=== PATIENT | female | born 2000 | race Caucasian/White ===

== ENCOUNTER 2021-05-12 10:19 | Emergency (ER) | payer MEDICAID ==
[2021-05-12] MEDS ORDERED: PREDNISONE10 MG PO (10:51)
[2021-05-12] MEDS ORDERED: SERTRALINE HYD100 MG PO (10:52)
[2021-05-12 11:14] LABS: HEMATOCRIT 41.9 % (37.0-47.0); HEMOGLOBIN 14.4 g/dL (12.5-16.0); MEAN CELL VOLUME 83 fl (78-100); MEAN CORPUSCULAR HEMOGLOBIN 29 pg (27-31); MEAN CORPUSCULAR HGB CONC 34 g/dL (33-37); MEAN PLATELET VOLUME 11.2 fl (7.4-10.4); PLATELET COUNT 311 K/mm3 (130-400); RED BLOOD COUNT 5.06 M/mm3 (4.10-5.30); RED CELL DISTRIBUTION WIDTH 14.1 % (11.5-14.5); WHITE BLOOD COUNT 16.3 K/mm3 (4.8-10.8)
[2021-05-12 11:21] LABS: ALBUMIN 4.1 g/dL (3.5-5.0); POTASSIUM 3.4 mmol/L (3.5-5.1)
[2021-05-12 11:22] LABS: CALCIUM 8.6 mg/dL (8.3-10.5)
[2021-05-12 11:25] LABS: TOTAL BILIRUBIN 0.3 mg/dL (0.2-1.2); URINE APPEARANCE CLOUDY; URINE BILIRUBIN NEGATIVE (NEGATIVE); URINE BLOOD 250 ery/uL (NEGATIVE); URINE COLOR YELLOW; URINE GLUCOSE NEGATIVE (NEGATIVE); URINE KETONE NEGATIVE (NEGATIVE); URINE LEUKOCYTE ESTERASE TRACE (NEGATIVE); URINE NITRATE NEGATIVE (NEGATIVE); URINE PROTEIN(semi-quant) TRACE mg/dL (NEGATIVE); URINE UROBILINOGEN NORMAL (NORMAL)
[2021-05-12 11:26] LABS: URINE MUCUS PRESENT (NOT PRESENT)
[2021-05-12 11:33] LABS: LYMPHOCYTE 29 % (20-51); MONOCYTE 8 % (3-10); NEUTROPHILS 63 % (42-75)
[2021-05-12 15:39] VITALS: BP 126/76
== END 2021-05-12 12:52 | disposition short-term general hospital (02) ==
LOC: ED 10:19
PROVIDERS: Nurse Practitioner
DX: N13.2 Hydronephrosis with renal and ureteral calculous obstruction (principal); F17.210 Nicotine dependence, cigarettes, uncomplicated
CPT/HCPCS: J0696; J1885; J2270; J2405; J2550; J3010; J7030; Q9967